=== PATIENT | female | born 1990 | race Caucasian/White ===

== ENCOUNTER 2019-09-24 14:46 | Emergency (ER) | payer OTHER ==
[~2019-09-24] VITALS: Ht 162.6 cm; Wt 145.1 kg
--- NOTE | 2019-09-24 17:00 | Diagnostic Imaging Report ---
EXAMINATION: CHEST 2 VIEWS INDICATION: Pneumonia, ^cough COMPARISON: None FINDINGS: PA and lateral views TUBES and LINES: None. LUNGS: Lungs are well inflated. There is no evidence of pneumonia or pulmonary edema. PLEURA: No pleural effusion or pneumothorax. HEART AND MEDIASTINUM: The cardiomediastinal silhouette is unremarkable.. BONES AND SOFT TISSUES: No focal osseous lesions. Soft tissues are unremarkable. UPPER ABDOMEN: No free air under the diaphragm. IMPRESSION: No acute thoracic abnormality. Signed by: Dr. Davey Rubio MD on 09/24/2019 4:57 PM
--- NOTE | 2019-09-24 18:30 | NUR ---
DR HERRERA SEEING PATIENT
== END 2019-09-24 18:45 | disposition left against medical advice (07) ==
LOC: ER 14:46
DX: R06.00 Dyspnea, unspecified (principal)
CPT/HCPCS: 71046; 99283